=== PATIENT | male | born 1940 | race Caucasian/White ===

== ENCOUNTER 2019-08-14 09:57 | Inpatient (IN) | payer MEDICARE ==
[2019-08-14 10:21] LABS: Actual Bicarbonate (HCO3a) 15.2 mEq/L (22-28); Analyzer IN Cardio ER; Base Excess (BEa) -10.1 mEq/L (-2.0 to +3.0); Calcium, Ionized 1.14 mmol/L (1.12-1.30); Carboxyhemoglobin (COHb) 0.3 gm% (0.0-3.0); Hemoglobin (Hb) 12.5 g/dL (14.0-18.0); O2 Tension (PaO2) 129.1 mmHg (> 70.0); Potassium - ABG Lab 4.09 mmol/L (3.70-5.30)
[2019-08-14] MEDS ORDERED: Rocuronium Bromide 10 MG/ML (10ML VIAL) ONE (10:23)
[2019-08-14] MEDS ORDERED: Succinylcholine Chloride 20 MG/ML 10 ml SYRINGE FS ONE (10:23)
[2019-08-14] MEDS ORDERED: Heparin (Artline) 1,000 ML ONE (10:32)
[2019-08-14] MEDS ORDERED: Lidocaine 1% (PF) 30 ML VIAL ONE (10:33)
--- NOTE | 2019-08-14 10:45 | RAD ---
RADIOGRAPH CHEST 1 VIEW: Supine DATE: 08/14/2019 10:10 AM HISTORY: 78-year-old male with dyspnea FINDINGS: There is no airspace density or pulmonary edema. The lateral costophrenic angles are sharp. Supine po sitioning makes this study insensitive for the detection of pneumothorax. ETT tip overlies mid thoracic trachea. Esophagogastric tube is partially visualized in left upper quadrant of abdomen medi ally. Defibrillator paddle overlies the lateral aspect of the right lung. IMPRESSION: 1. No acute pulmonary findings. 2. Status post intubation with endotracheal tube and esophagogastric tube. 3. Ongoing cardioversion.
[2019-08-14] MEDS ORDERED: EPINEPHrine 1 MG/ML AMP ONE (10:51)
[2019-08-14] MEDS ORDERED: EPINEPHrine 1 MG/10 ML Abboject SYRINGE ONE ×2 (10:52→15:33)
[2019-08-14] MEDS ORDERED: EPINEPHrine 1 MG, Admixture Fee 1 EACH in Dextrose 5% in Water 250 ML IVPB SCH (11:00)
[2019-08-14 11:03] LABS: ALT (SGPT) 45 U/L (8-55); AST (SGOT) 54 U/L (5-34); Albumin 3.6 g/dL (3.4-4.8); Alkaline Phosphatase 92 U/L (40-110); Anion Gap 17 mmol/L (10-20); BUN (Urea Nitrogen) 23 mg/dL (8.4-25.7); Bilirubin, Total 0.8 mg/dL (0.2-1.2); Calc. Creatinine Clearance 0 mL/min (70-130); Calcium 8.9 mg/dL (7.8-10.44); Carbon Dioxide 21 mmol/L (23-31); Chloride 103 mmol/L (98-107); Estimated GFR-MDRD 50; Globulin 2.8 g/dL (2.4-3.5); Glucose 272 mg/dL (83-110); Lipase 24 U/L (8-78); Protein, Total 6.4 g/dL (5.8-8.1); Sodium 137 mmol/L (136-145)
[2019-08-14 11:17] LABS: CKMB 2.3 ng/mL (0-6.6)
[2019-08-14] MEDS ORDERED: Norepinephrine 8 MG/0.9% NS 250 ML ONE (11:38)
[2019-08-14 11:42] LABS: CK (CPK) 130 U/L (30-200)
[2019-08-14 11:54] LABS: Puncture Site RBA
[2019-08-14 12:01] LABS: Actual Bicarbonate (HCO3a) 16.8 mEq/L (22-28); Analyzer IN Cardio ER; Base Excess (BEa) -11.5 mEq/L (-2.0 to +3.0); CO2 Tension 48.8 mmHg (35.0-45.0); Calcium, Ionized 1.08 mmol/L (1.12-1.30); Carboxyhemoglobin (COHb) 0.3 gm% (0.0-3.0); Hemoglobin (Hb) 9.8 g/dL (14.0-18.0); O2 Tension (PaO2) 321.4 mmHg (> 70.0); Potassium - ABG Lab 3.75 mmol/L (3.70-5.30)
[2019-08-14 12:02] LABS: Puncture Site RRA; pH, Arterial 7.15 (7.35-7.45)
--- NOTE | 2019-08-14 12:08 | PDOC.FPRHP ---
- Allergies/Adverse Reactions Allergies Allergy/AdvReac Type Severity Reaction Status Date / Time Penicillins Allergy Verified 05/04/13 22:20 - Home Medications Medication Instructions Recorded Confirmed Type buPROPion [Wellbutrin] 300 mg PO DAILY 05/04/13 05/04/13 History Cranberry Fruit Extract [Cranberry 500 mg PO DAILY 05/05/13 05/05/13 History Concentrate] FLUoxetine HCl [Prozac] 20 mg PO DAILY 05/05/13 05/05/13 History Maxzide-25 0.5 tab PO DAILY 05/05/13 05/05/13 History Men's Multi-Vitamin PO DAILY 05/05/13 05/05/13 History Vitamin C PO DAILY 05/05/13 05/05/13 History Cepastat Lozenges 1 linn PO Q2H PRN 05/07/13 05/07/13 History HYDROcodone/Acetaminophen [Lamont 1 tab PO Q4H PRN 05/07/13 05/07/13 History 10-325 Tablet] Ketorolac Tromethamine [Toradol] 10 mg PO Q6H 05/07/13 05/07/13 History - History PMHx: PSHx: FHx: Social: - Vital signs BP: [] HR: [] RR: [] Tmax: [] Pox: []% on [] Wt: [] FMR H&P: Results - Labs Result Diagrams: 08/14/19 10:04 Lab results: ABG pH 7.15 (7.35-7.45) L* 08/14/19 11:55 ABG pCO2 48.8 mmHg (35.0-45.0) H 08/14/19 11:55 ABG pO2 321.4 mmHg (> 70.0) H 08/14/19 11:55 Sodium 137 mmol/L (136-145) 08/14/19 10:04 Potassium 4.0 mmol/L (3.5-5.1) 08/14/19 10:04 Chloride 103 mmol/L (98-107) 08/14/19 10:04 Carbon Dioxide 21 mmol/L (23-31) L 08/14/19 10:04 BUN 23 mg/dL (8.4-25.7) 08/14/19 10:04 Creatinine 1.37 mg/dL (0.7-1.3) H 08/14/19 10:04 Glucose 272 mg/dL (83-110) H 08/14/19 10:04 Calcium 8.9 mg/dL (7.8-10.44) 08/14/19 10:04 Total Bilirubin 0.8 mg/dL (0.2-1.2) 08/14/19 10:04 AST 54 U/L (5-34) H 08/14/19 10:04 ALT 45 U/L (8-55) 08/14/19 10:04 Alkaline Phosphatase 92 U/L (40-110) 08/14/19 10:04 Creatine Kinase 130 U/L (30-200) 08/14/19 10:04 CK-MB (CK-2) 2.3 ng/mL (0-6.6) 08/14/19 10:04 B-Natriuretic Peptide 106.0 pg/mL (0-100) H 08/14/19 10:04 Serum Total Protein 6.4 g/dL (5.8-8.1) 08/14/19 10:04 Albumin 3.6 g/dL (3.4-4.8) 08/14/19 10:04 Lipase 24 U/L (8-78) 08/14/19 10:04 FMR H&P: Upper Level - Plan Date/Time: 08/14/19 1208 I, [], have evaluated this patient and agree with findings/plan as outlined by international account manager resident. Pertinent changes/additions are listed here.
[2019-08-14] MEDS ORDERED: CCU Electrolyte Replacement 1 EACH FS SCH (12:12)
[2019-08-14] MEDS ORDERED: Heparin 25,000 units/D5W 500 ML IVPB SCH (12:15)
[2019-08-14] MEDS ORDERED: Heparin 10,000 UNITS/ 10 ML VIAL SLOW IVP SCH (12:15)
[2019-08-14] MEDS ORDERED: Ventilator Sedation Protocol 1 EACH FS SCH (12:15)
[2019-08-14] MEDS ORDERED: Norepinephrine 8 MG/0.9% NS 250 ML IVPB SCH (12:15)
--- NOTE | 2019-08-14 12:17 | CT ---
BRAIN CT SCAN WITHOUT IV CONTRAST: HISTORY: Syncope and collapse. FINDINGS: No focal mass or midline shift. No intra- or extraaxial hemorrhage. Scattered chronic white matter ischemic changes. There is noted to be minimal dilatation of the right superior ophthalmic vein up t o approximately 0.4 cm with minimal tortuosity. IMPRESSION: Mild chronic white matter ischemic changes. No mass or bleed or other significant acute intracranial process. Nonspecific minimal dilatation of the right superior ophthalmic vein. Depending upon conc stacey, followup nonemergent additional imaging with orbit and brain MRI with and without IV contrast mi ght be considered. POS: OFF
--- NOTE | 2019-08-14 12:20 | CT ---
CTA Angio Chest W WO Con 08/14/2019 10:09 AM Indication: History of right knee surgery with syncopal episode Technique: Multiple CTA images were obtained of the thorax with IV contrast. 3-D rendering: MIP jaciel nstructed images were created and reviewed. Comparison: No relevant prior studies available. Findings: Pulmonary arteries: There are distal peripheral emboli seen within the distal aspect of the mid righ t and left main pulmonary arteries. There are partially occlusive thrombus extending down the right interlobar artery with more occlusive thrombus seen within the posterior medial segmental pulmonary a rtery of the right lower lobe. There is also partially occlusive thrombus extending into the posterior lateral right lower lobe segmental pulmonary artery. The right middle and right upper lobe pulmonary lobar arteries appear patent. There is a prominent partially occlusive thrombus within the distal left main pulmonary artery with extension into the left lower lobar pulmonary artery. Ther e is occlusive thrombus seen within the posterior medial segmental pulmonary artery of the left lower lobe. There are multiple scattered thrombi seen within segmental pulmonary arteries of the post erior lateral left lower lobe. There is some partially occlusive thrombus extending into the lingular lobar artery as well as the superior and inferior segmental lingular branches. There is part ially occlusive thrombus seen involving the apical posterior segment of the left upper lobe. Heart and Aorta: There is flattening of the interventricular septum consistent with elevated right h eart pressures. Mediastinum:The patient is intubated. Lungs:There is some subsegmental volume loss within both lungs. Prominent wedgelike airspace opacity seen within the posterior lateral left lower lobe suspicious for either atelectasis, aspiration or infarct. Pleural space: Clear. Upper Abdomen: No acute abnormality. Osseous Structures: No acute osseous abnormality. Soft tissues:No abnormality. Other findings:None. Impression: Extensive the pulmonary emboli involving both lungs as detailed above. There is flattening of the int erventricular septum is consistent with some right heart dysfunction. Findings called to Dr. Lester at 12:14 PM on August 14, 2019. Wedge like area of peripheral airspace opacity in the left lower lobe may reflect pulmonary infarct, aspiration or subsegmental volume loss.
--- NOTE | 2019-08-14 12:26 | CON ---
DATE OF CONSULTATION: 08/14/2019 CONSULT PHYSICIAN: CLEO, Dr. Lester. REASON FOR CONSULTATION: Pulmonary embolism. HISTORY OF PRESENT ILLNESS: The patient presented to the emergency room earlier today with shortness of breath that first occurred during physical therapy session. Upon arrival, he was profoundly dyspneic. It was thought that he was originally having a myocardial infarction. The cath team was activated. Dr. Garcia came down and performed an echocardiogram, which showed a hugely dilated right heart. The patient is about 2 weeks post right total knee replacement. The patient subsequently decompensated and had to be intubated, after that he had a cardiopulmonary arrest. He received tPA on the assumption that he was probably having a pulmonary embolism. He had a total downtime of about 24 minutes. He received sequential epinephrine and shocks at various points during the code. He has now regained hemodynamic stability. He is on his way to CAT scan to confirm diagnosis. PAST MEDICAL HISTORY: 1. Hypertension. 2. Osteoarthritis. 3. Depression. PAST SURGICAL HISTORY: Cholecystectomy, tonsillectomy and adenoidectomy, right total knee replacement. ALLERGIES: PENICILLIN, SULFA. SOCIAL HISTORY: Drinks a beer every day. Also dips tobacco. 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 MEDICATIONS: Prior to admission, he was taking aspirin. I do not have a list of his other medications at this time. REVIEW OF SYSTEMS: Cannot be obtained as the patient is obtunded and on mechanical ventilation. PHYSICAL EXAMINATION: VITAL SIGNS: Heart rate 106, blood pressure 116/72, O2 saturations 100%, and tidal CO2 is 20. He is intubated. HEENT: Pupils reactive. Sclerae are anicteric. Oropharynx, ET tube in place. NECK: No adenopathy or JVD. LUNGS: Clear to auscultation. CARDIAC: S1 and S2 tachycardic. ABDOMEN: Soft and nontender. EXTREMITIES: No clubbing or cyanosis. He has a bandage over his right knee. He has a central line in his left groin. LABORATORY DATA: Sodium 137, potassium 4, chloride 103, CO2 of 21, BUN 23, creatinine 1.4, glucose 272. Troponin 0.034. BNP is 106. I do not have any other labs back at this time except for a post resuscitation blood gas, which shows a pH of 7.15, pCO2 of 49, PO2 of 321. IMAGING STUDIES: Chest x-ray shows no mass, effusion, or infiltrate, and the ET tube is in good position. ASSESSMENT: 1. Likely pulmonary embolism. 2. Acute hypoxic respiratory failure. 3. Status post cardiopulmonary arrest. PLAN: 1. Follow up results of CT scan. 2. Continue mechanical ventilation. 3. The patient has received 100 mg of systemic tPA IV. He will be started on a heparin drip in several hours. 4. Levophed as needed. 5. Other orders to follow. Job ID: [id number]
[2019-08-14 12:43] LABS: Hemoglobin 9.1 g/dL (14.0-18.0); Mean Corpuscular HGB CONC 32.2 g/dL (32.0-36.0); Mean Corpuscular Hemoglobin 32.6 pg (27.0-31.0); Platelet Count 186 thou/uL (130-400); RBC Distribution Width 11.7 % (11.5-14.5); Red Blood Cell (RBC) Count 2.79 mill/uL (4.70-6.10); White Blood Cell (WBC) Count 20.7 thou/uL (4.8-10.8)
[2019-08-14 12:58] LABS: PTT 139.3 SEC (22.9-36.1)
[2019-08-14 13:10] LABS: Band 40 % (5-11); Eosinophils 1 % (0-10); Lymphocytes 2 % (21-51); MDiff Complete? YES; Macrocytosis SLIGHT = 6-15 cells (100X) (0-5/hpf); Monocytes 3 % (0-10); Neutrophil 52 % (42-75); Platelet Morphology Comment Appears Adequate; Polychromasia SLIGHT = 2-3 cells (100X) (0-2/hpf); Reactive Lymphocytes 2 % (0-10)
[2019-08-14] MEDS ORDERED: Fentanyl 100 MCG/2 ML VIAL ONE (13:33)
[2019-08-14] MEDS ORDERED: fentaNYL Citrate/PF 2,000 MCG in Sodium Chloride 0.9% 60 ML IV SCH (13:57)
[2019-08-14] MEDS ORDERED: Morphine 2 MG/ML SYRINGE SLOW IVP PRN (13:57)
[2019-08-14] MEDS ORDERED: Fentanyl BOLUS 250 ML IVPB PRN (13:57)
[2019-08-14] MEDS ORDERED: Propofol BOLUS 1,000 MG/100 ML VIAL IV PRN (13:57)
[2019-08-14] MEDS ORDERED: Lorazepam 2 MG/ML VIAL SLOW IVP PRN (13:57)
[2019-08-14] MEDS ORDERED: PHOS-NAK 1 PKT PACK PO PRN ×2 (13:59)
[2019-08-14] MEDS ORDERED: Potassium Chloride 20 MEQ TAB PO PRN (13:59)
[2019-08-14] MEDS ORDERED: Potassium Phosphate 9 MMOL in Sodium Chloride 0.9% 100 ML IVPB PRN (13:59)
[2019-08-14] MEDS ORDERED: Potassium Chloride 40 MEQ in Premix Bag 1 BAG IVPB PRN (13:59)
[2019-08-14] MEDS ORDERED: Magnesium Oxide 400 MG TAB PO PRN ×2 (13:59)
[2019-08-14] MEDS ORDERED: Magnesium 2 GM/50 ML 2 GM in Premix Bag 1 BAG IVPB PRN (13:59)
[2019-08-14] MEDS ORDERED: CCU ELECTROLYTE REPLACEMENT PROTOCOL FS PRN (13:59)
[2019-08-14] MEDS ORDERED: Potassium Phosphate 15 MMOL in Sodium Chloride 0.9% 250 ML 250 ML IV PRN (13:59)
[2019-08-14] MEDS ORDERED: Potassium Phosphate 12 MMOL in Sodium Chloride 0.9% 250 ML 250 ML IV PRN (13:59)
[2019-08-14] MEDS ORDERED: Potassium Chloride 40 MEQ in Sodium Chloride 0.9% 250 ML 250 ML IVPB PRN (13:59)
[2019-08-14] MEDS ORDERED: DISCONTINUE PREVIOUS NARCOTIC PAIN MEDICATIONS AND BENZODIAZEPINES FS SCH (14:00)
[2019-08-14] MEDS ORDERED: Lidocaine 2% PF 100 mg/5 ml Syringe ONE (14:33)
[2019-08-14] MEDS ORDERED: Calcium Chloride 1 GM/10 ML Abboject SYRINGE ONE (14:33)
[2019-08-14] MEDS ORDERED: Sodium Bicarb 50 MEQ/50 ML Abboject 8.4% SYRINGE ONE (14:33)
[2019-08-14 14:38] LABS: Actual Bicarbonate (HCO3a) 20.7 mEq/L (22-28); Base Excess (BEa) -4.1 mEq/L (-2.0 to +3.0); CO2 Tension 36.8 mmHg (35.0-45.0); Calcium, Ionized 1.12 mmol/L (1.12-1.30); Carboxyhemoglobin (COHb) 0.3 gm% (0.0-3.0); Hemoglobin (Hb) 10.5 g/dL (14.0-18.0); O2 Tension (PaO2) 319.9 mmHg (> 70.0); Potassium - ABG Lab 3.95 mmol/L (3.70-5.30); pH, Arterial 7.37 (7.35-7.45)
[2019-08-14] MEDS ORDERED: Iopamidol-370 76% 500 ML 1 ML ONE (14:38)
[2019-08-14 14:40] LABS: Puncture Site RBRACH
[2019-08-14] MEDS: Sodium Chloride 0.9% 1,000 ML IV SCH ×2 (14:55→18:11)
[2019-08-14] MEDS: Propofol 1,000 MG/100 ML VIAL IV PRN ×2 (14:57→20:00)
[2019-08-14 15:12] VITALS: BMI 29.3
--- NOTE | 2019-08-14 15:18 | HP ---
PRIMARY CARE PHYSICIAN: Domenic Medina MD. REASON FOR ADMISSION: Syncope. HISTORY OF PRESENT ILLNESS: The history of present illness is taken entirely from the patient's sister, who is at the bedside as the patient is currently intubated and cannot give a history. But, Mr. Moore is a 78-year-old gentleman, who recently had undergone a right total knee replacement. I believe this was done at the [facility]. He was discharged home last Sunday. He was undergoing home physical therapy. He was actually on his first physical therapy session when the physical therapist called EMS because he was having a hard time breathing. Apparently, he was having episodes where he looked like he was passing out and she also noted that the blood pressure was extremely low. When the ambulance arrived, they brought him to the hospital. According to the emergency room physician, he became hypotensive, also bit bradycardic and syncopized twice. Due to concern for possible PE, they had placed him on the CT scanner, where he actually started to code. The ER physician was concerned about pulmonary embolism and administered tPA. Prior to that, his O2 stats were down in the 30s. After tPA, he began to have an improved oxygen saturation. During this time, he was also intubated and is currently being admitted to the ICU. CT angiogram of the chest did confirm the presence of a pulmonary embolism. Otherwise, the patient's sister said she had talked to him earlier this morning and he seemed fine. He had no complaints and she was a bit concerned about him going home by himself. He lives alone and in her opinion, she felt that he should have been in rehab. REVIEW OF SYSTEMS: Otherwise, unable to obtain because the patient is intubated. PAST MEDICAL HISTORY: Taken from the patient's sister. He has history of gastroesophageal reflux disease as well as osteoarthritis of the knee. He did see Dr. Lemus recently for a cardiac clearance, but she says it was just routine. He does not have history of any other cardiac problems. PAST SURGICAL HISTORY: He has had a tonsillectomy and adenoids removed as a child. She is not sure if he had a cholecystectomy or not. ALLERGIES: TO SULFA, SHE KNOWS FOR SURE. PENICILLIN, SHE IS NOT QUITE SURE OF. SOCIAL HISTORY: He was never . He has no children. He was a former smoker, but quit 40 years ago. He occasionally will drink some alcohol. His sister, Valerie Moore, is the medical power of criminal defense attorney. He also has a brother by the name of Abhilash Moore. FAMILY HISTORY: Significant for father, who had tuberculosis as well as rheumatic heart disease and he had surgery by Dr. Schuster. CURRENT MEDICATIONS: Include; 1. Triamterene/hydrochlorothiazide daily. 2. Flomax 0.4 mg daily. 3. Protonix 40 mg daily. 4. Wellbutrin XL 300 mg daily. 5. Fluoxetine 20 mg daily. 6. Celebrex 200 mg twice a day. 7. Aspirin 325 mg daily. PHYSICAL EXAMINATION: GENERAL: He is currently intubated. He is being sedated. HEENT: His pupils are reactive. Throat, he has ET tube in place. NECK: Also unable to hear much due to the ventilator. LUNGS: Clear to auscultation with some mild coarse breath sounds. CARDIOVASCULAR: His heart rate is regular. I did not appreciate any murmurs, clicks, or rubs. ABDOMEN: Soft. Positive for bowel sounds. EXTREMITIES: The right lower extremity, there is some edema, which is 1+ and he has palpable distal pulses. NEUROLOGIC: He was given a paralytic and therefore unable to assess any further the neurological exam. LABORATORY RESULTS: Sodium 137, potassium 4.0, chloride is 103, CO2 is 21, BUN of 23, creatinine 1.37, and glucose is 272. Troponin is 0.034. The white blood cell count is 20.7, hemoglobin 9.1, hematocrit is 28.3, and platelet count is 186. ASSESSMENT AND PLAN: This is a pleasant 78-year-old gentleman, who unfortunately suffered a massive pulmonary embolism with hemodynamic or vascular collapse. He is being admitted to the ICU. He has already been intubated. He is post tPA. We will defer to Pulmonology with regard to management of the pulmonary embolism and when to start anticoagulation post tPA. Continue supportive care. He will be placed on GI prophylaxis and depending on how long he requires intubation, we will begin nutritional support as well. Further recommendations to follow. Job ID: [id number]
--- NOTE | 2019-08-14 20:13 | CON ---
DATE OF CONSULTATION: 08/14/2019 REASON FOR CONSULTATION: Possible acute PA. HISTORY OF PRESENT ILLNESS: Mr. Moore is a 78-year-old white gentleman, who comes to the hospital after a syncopal spell. He was doing physical therapy and experienced a syncopal spell. He was brought in emergently and the initial EKG showed just a right bundle-branch block with no ST changes. He then started to become bradycardic. Repeat EKG showed possible inferior ST elevations and Cardiology was called. On my arrival to the patient's bedside, he is currently in a PEA arrest and he is having ongoing CPR. All the information is obtained from chart review and ER physician and ER personnel. He recently had knee replacement surgery and has been in rehab. He has had a few syncopal spell in the last few days, but today made him come into the hospital for this. He had a witnessed PEA arrest. I was bedside during his CPR and he had a prolonged CPR. Please see ER note for further details. When he finally had a perfusable rhythm, we did a bedside echocardiogram, which showed his LV was actually hyperdynamic with EF above 70%. His right ventricle was severely dilated with reduced RV systolic function and a very dilated right atrium. This is all suggestive of an acute elevation of pressures in the right side of the heart consistent with massive pulmonary embolism. He received tPA during the resuscitative effort as it was suspected that this was a PE as well during the CPR. Currently, he is in the ICU, intubated and off any sedation. PAST MEDICAL HISTORY: 1. Hypertension. 2. Osteoarthritis. 3. Depression. PAST SURGICAL HISTORY: 1. Cholecystectomy. 2. Tonsillectomy. 3. Adenoidectomy. 4. Right total knee replacement just about a week ago. OUTPATIENT MEDICATIONS: Aspirin. ALLERGIES: PENICILLIN AND SULFA DRUGS. SOCIAL HISTORY: Drinks 1 beer a day. Dips tobacco. 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 No drug use. REVIEW OF SYSTEMS: Unobtainable as he is intubated and unresponsive. PHYSICAL EXAMINATION: VITAL SIGNS: Temperature 97.0, pulse of 95, respiratory rate 26, saturating 100% on 40% FiO2, and blood pressure 92/61. GENERAL: Sedated, intubated. HEENT: Normocephalic. NECK: Supple. LUNGS: Coarse breath sounds. CARDIOVASCULAR: Tachycardic. S1 and S2. ABDOMEN: Soft with reduced bowel sounds. EXTREMITIES: No edema. SKIN: Warm and dry. LABORATORY DATA: Laboratory work was reviewed. IMAGING STUDIES: Reviewed. CTA showed evidence of bilateral pulmonary embolisms. ASSESSMENT: 1. Massive pulmonary embolism. 2. Distributive shock. 3. Severe anoxic brain injury, most likely. 4. Recent knee replacement. PLAN: 1. Supportive care for now. 2. The biggest issue is his anoxic brain injury. He was hypoxic for prolonged period of time given his pulmonary embolism even though he was intubated and given 100% oxygen. His is at bedside and she verbalized understanding of the possibility of this severe anoxic brain injury and she is prepared to terminally extubate. At this time, she is waiting on his brother to arrive. 3. From the cardiac perspective, this is unlikely to be an acute PA and most likely his episode was from his pulmonary embolism. 70 minutes of critical care at bedside. Job ID: [id number]
[2019-08-15] MEDS: Propofol 1,000 MG/100 ML VIAL IV PRN (01:35)
[2019-08-15] MEDS: Sodium Chloride 0.9% 1,000 ML IV SCH ×2 (04:03→07:11)
[2019-08-15 04:40] LABS: #Lymphocytes 0.5 thou/uL (1.20-3.40); #Monocytes 1.4 thou/uL (0.11-0.59); #Neutrophils 15.2 thou/uL (1.40-6.50); %Eosinophils 0.1 % (0.0-10.0); %Lymphocytes 2.8 % (21.0-51.0); Hemoglobin 9.4 g/dL (14.0-18.0); Mean Corpuscular HGB CONC 32.7 g/dL (32.0-36.0); Mean Corpuscular Hemoglobin 32.4 pg (27.0-31.0); Mean Corpuscular Volume 98.8 fL (78.0-98.0); Mean Platelet Volume 7.2 fL (7.4-10.4); Platelet Count 229 thou/uL (130-400); RBC Distribution Width 11.8 % (11.5-14.5); Red Blood Cell (RBC) Count 2.91 mill/uL (4.70-6.10); White Blood Cell (WBC) Count 17.1 thou/uL (4.8-10.8)
[2019-08-15 04:59] LABS: Anion Gap 9 mmol/L (10-20); BUN (Urea Nitrogen) 32 mg/dL (8.4-25.7); Calc. Creatinine Clearance 66 mL/min (70-130); Calcium 7.4 mg/dL (7.8-10.44); Carbon Dioxide 27 mmol/L (23-31); Chloride 111 mmol/L (98-107); Estimated GFR-MDRD 59; Glucose 150 mg/dL (83-110); Potassium 3.9 mmol/L (3.5-5.1); Sodium 143 mmol/L (136-145)
[2019-08-15 07:02] LABS: Actual Bicarbonate (HCO3a) 23.7 mEq/L (22-28); Base Excess (BEa) 1.6 mEq/L (-2.0 to +3.0); CO2 Tension 28.8 mmHg (35.0-45.0); Calcium, Ionized 1.08 mmol/L (1.12-1.30); Carboxyhemoglobin (COHb) 0.7 gm% (0.0-3.0); Hemoglobin (Hb) 9.8 g/dL (14.0-18.0); O2 Tension (PaO2) 114.8 mmHg (> 70.0); Potassium - ABG Lab 3.53 mmol/L (3.70-5.30); pH, Arterial 7.53 (7.35-7.45)
[2019-08-15 07:07] LABS: Puncture Site RRA
[2019-08-15 07:42] VITALS: TEMP 100.2
--- NOTE | 2019-08-15 07:55 | RAD ---
Frontal radiograph chest portable supine: 08/15/2019 COMPARISON: 08/14/2019 HISTORY: Pneumonia FINDINGS: Dense opacity in both lung bases with obscuration of bilateral hemidiaphragms consistent wi th partial bibasilar consolidation/collapse. Endotracheal tube and nasogastric tube in place. Supine imaging provided, limiting assessment for pneumothorax and pleural fluid. Aeration within the lung bases has significantly worsened bilaterally when compared to the study performed 08/14/2019. IMPRESSION: Interval worsening of lower lobe aeration bilaterally as above.
--- NOTE | 2019-08-15 08:21 | PRG ---
DATE OF SERVICE: 08/15/2019 TIME SPENT: 35 minutes of critical care time. SUBJECTIVE: The patient remains intubated on mechanical ventilation. OBJECTIVE: VITAL SIGNS: His temperature is 98.3, pulse 86, blood pressure 142/63, and O2 saturation 99%. Intake 2722, output 1030. NEUROLOGIC: He does not withdrawal to pain. His pupils are sluggishly reactive. He did have downgoing toes on Babinski. He has been off sedation since about 11:00 p.m. last night. HEENT: Unremarkable. NECK: No adenopathy or JVD. LUNGS: Coarse breath sounds. CARDIAC: S1 and S2. Regular. ABDOMEN: Soft. EXTREMITIES: No edema. LABORATORY DATA: White blood cell count 17.1, hematocrit 28.8, and platelet count 229. PH of 7.53, pCO2 of 28, pO2 of 114 on SIMV rate 26, tidal volume 550, PEEP 3, pressure support 10, and FiO2 of 50%. Sodium 143, potassium 3.9, chloride 111, CO2 of 27, BUN 32, creatinine 1.2, and glucose 150. ASSESSMENT: 1. Pulmonary embolism resulting in cardiopulmonary arrest. 2. Acute respiratory failure, requiring mechanical ventilation. 3. Probable anoxic brain injury secondary to 25 minutes of CPR time. 4. Status post right total knee replacement. PLAN: 1. I doubt that the patient will recover neurologically. Family may lean towards withdrawing care this weekend. The patient is DNR. 2. I have started him on Lovenox 1 mg/kg subcu b.i.d. 3. Continue supportive care, otherwise. 4. I have adjusted the mechanical ventilation rate. 5. Consider initiating tube feeds. The family wants to continue aggressive care. Job ID: [id number]
[2019-08-15] MEDS ORDERED: Enoxaparin Sodium 100 MG/ML SYRINGE SC SCH (09:00)
[2019-08-15] MEDS ORDERED: Pantoprazole 40 MG VIAL IVP SCH (09:00)
[2019-08-15] MEDS ORDERED: FLU VACC TS2019-20(65YR UP)/PF 180 MCG/0.5 ML SYRINGE IM ONE (09:00)
[2019-08-15] MEDS ORDERED: Prevnar 13-Val Conj/PF 0.5 ML SYRINGE IM ONE (09:00)
[2019-08-15] MEDS ORDERED: Enoxaparin Sodium 80 MG/0.8 ML SYRINGE SC SCH (09:00)
--- NOTE | 2019-08-15 09:09 | PRG ---
DATE OF SERVICE: 08/15/2019 This is an update to an earlier progress note. I have met with the family, and they have decided to withdraw care today. I have asked the nurse to extubate the patient. We will give morphine as needed for air hunger. Job ID: [id number]
[2019-08-15] MEDS: Morphine 4 MG/ML VIAL SLOW IVP PRN ×5 (09:15→10:20)
[2019-08-15] MEDS ORDERED: Lorazepam 2 MG/ML VIAL ONE (09:58)
[2019-08-15] MEDS ORDERED: Lorazepam 2 MG/ML VIAL SLOW IVP PRN (10:22)
--- NOTE | 2019-08-15 19:37 | DIS ---
DATE OF ADMISSION: 08/14/2019 DATE OF DISCHARGE: 08/15/2019 DATE OF : 08/15/2019. DIAGNOSES: 1. Massive pulmonary embolism. 2. Acute respiratory failure secondary to massive pulmonary embolism. 3. Recent knee replacement. CODE STATUS: DNAR. ALLERGIES: TO PENICILLIN. PROCEDURES DONE DURING ADMISSION: The patient had a CT angiogram of the chest showing extensive pulmonary emboli involving both lungs. There was flattening of the interventricular septum consistent with right heart dysfunction and a wedge-like area in the peripheral airspace, likely right reflecting pulmonary infarction. HOSPITAL COURSE: Mr. Moore was a pleasant 78-year-old gentleman, who had recently undergone knee replacement surgery, a right total knee replacement. He was actually undergoing his first physical therapy session at home when he began having problems breathing and had a syncopal episode. He was brought via EMS to the hospital, where he had another syncopal episode and then shortly thereafter had cardiac arrest. The patient underwent standard ACLS protocol and the ER physician was concerned that it could be a pulmonary embolism. Therefore, thrombolytics were initiated and the patient's oxygen saturations began to improve and he had return of spontaneous circulation. He was intubated during this time and moved to the ICU. The patient was seen by Pulmonary/Critical Care as well as Cardiology. It was felt that the elevated troponins were likely as a result of the massive PE. Unfortunately, it was felt that he suffered significant anoxic brain injury during this event and the family made the decision to terminally extubate the patient and withdraw care and shortly thereafter, the patient . The cause of was the massive pulmonary embolism. Job ID: [id number]
--- NOTE | 2019-08-18 02:48 | PQF ---
SHERITA HELLER JR, TONI MD [id number] CLINICAL DOCUMENTATION CLARIFICATION FORM: POST DISCHARGE Addendum to original discharge summary date: ____ Late entry note date: __ DATE: 08/18/2019 ATTN: Marck Gleason Please exercise your independent, professional judgment in responding to the clarification form. Clinical indicators are provided on the bottom of this form for your review Please check appropriate box(s): [ X] Acute Pulmonary Embolism is a postoperative complication of Knee replacemenet [ ] Acute Pulmonary Embolism is not a postoperative complication of Knee replacemenet [ ] Other diagnosis [ ] Unable to determine In addition, please specify: Present on Admission (POA): [X ] Yes [ ] No [ ] Unable to determine CLINICAL INDICATORS - SIGNS / SYMPTOMS / LABS H&P p1 08/14 Dr Wright He was actually on his first physical therapy session when the PT called EMS because he was having hard time breathing H&P p1 08/14 Dr Wright According to ER Physician, he become hypotensive, also bit bradycardic and syncopized twice H&P p1 08/[address] angiogram confirmed the presence of Pulmonary embolism RISK FACTORS H&P p1 08/14 - 78 year-old male H&P p1 08/14 - s/p Right total knee replacement H&P p2 08/14 - Massive Pulmonary Embolism TREATMENT: Respiratory panel 08/14 Mechanical Ventilator SEP 13 TPA H&P p2 08/14 - Admitted to ICU H&P p2 08/14 - Will start anticoagulation Pulmonary consult 08/14 Lloyd Collier (This form is maintained as a part of the permanent medical record) 2014 [employer]. All Rights Reserved [email or web address]
== END 2019-08-15 10:43 | disposition expired | DRG 299 ==
LOC: ERS 09:57 → CCU 11:10
PROVIDERS: ADMIT Internal Medicine; ATTEND Internal Medicine
PROC: 5A1935Z Respiratory Ventilation, Less than 24 Consecutive Hours (ICD-10-PCS; principal; 2019-08-14)
PROC: 3E033XZ Introduction of Vasopressor into Peripheral Vein, Percutaneous Approach (ICD-10-PCS; 2019-08-14)
PROC: 3E03317 Introduction of Other Thrombolytic into Peripheral Vein, Percutaneous Approach (ICD-10-PCS; 2019-08-14)
PROC: 5A12012 Performance of Cardiac Output, Single, Manual (ICD-10-PCS; 2019-08-14)
PROC: 0BH17EZ Insertion of Endotracheal Airway into Trachea, Via Natural or Artificial Opening (ICD-10-PCS; 2019-08-14)
PROC: 5A2204Z Restoration of Cardiac Rhythm, Single (ICD-10-PCS; 2019-08-14)
PROC: 06HY33Z Insertion of Infusion Device into Lower Vein, Percutaneous Approach (ICD-10-PCS; 2019-08-14)
DX: T81.718A Complication of other artery following a procedure, not elsewhere classified, initial encounter (principal); J96.01 Acute respiratory failure with hypoxia; G93.1 Anoxic brain damage, not elsewhere classified; I26.99 Other pulmonary embolism without acute cor pulmonale; Z66 Do not resuscitate; Z51.5 Encounter for palliative care; R57.8 Other shock; I46.8 Cardiac arrest due to other underlying condition; K21.9 Gastro-esophageal reflux disease without esophagitis; F32.9 Major depressive disorder, single episode, unspecified; Y83.8 Other surgical procedures as the cause of abnormal reaction of the patient, or of later complication, without mention of misadventure at the time of the procedure; Z78.1 Physical restraint status; Z79.899 Other long term (current) drug therapy; Z79.82 Long term (current) use of aspirin; Z87.891 Personal history of nicotine dependence; Z88.0 Allergy status to penicillin; Z88.2 Allergy status to sulfonamides; Z90.49 Acquired absence of other specified parts of digestive tract
CPT/HCPCS: 31500; 36416; 36556; 51702; 70450; 71045; 71275; 80048; 80053; 82550; 82553; 82805; 83690; 83880; 84484; 85025; 85730; 86850; 86900; 86901; 92950; 93005; 94002; 94003; 94660; 96365; 96366; 96367; 96374; 96375; 96376; 99292; C9113; J0171; J1644; J1650; J2001; J2060; J2270; J2704; J2997; J3010; J3490; J7070; Q9967